=== PATIENT | female | born 1985 ===

== ENCOUNTER 2016-12-17 22:19 | Emergency (ER) | payer MEDICAID, OTHER ==
[2016-12-17 22:19] VITALS: BMI 38.4
[2016-12-17 22:33] VITALS: RESP 20; O2SAT 100
--- NOTE | 2016-12-17 23:39 | C.PDOC ---
History Of Present Illness Pt presents to ER with c/o of pain to right forearm S/P injury with a bedframe 1 week ago. Pt was helping carry a bedframe upstairs when it fell and hit her right arm. Pt applied ICE but pain continues, no OTC meds taken for pain. Pt denies weakness or numbness Time Seen by Provider: 12/17/16 22:42 Chief Complaint (Nursing): Upper Extremity Problem/Injury History Per: Patient History/Exam Limitations: no limitations Current Symptoms Are (Timing): Still Present Quality: Aching Severity: Mild Exacerbating Factor(s): Movement Past Medical History Vital Signs: Last Vital Signs Temp 98.4 F 12/17/16 22:28 Pulse 56 L 12/17/16 22:28 Resp 20 12/17/16 22:28 BP 104/70 12/17/16 22:28 Pulse Ox 100 12/17/16 23:39 - Medical History PMH: No Chronic Diseases - [facility] Procedures MONITORING NOS (08/29/14) LOW CERVICAL (08/29/14) Family History: States: Unknown Family Hx - Social History Hx Tobacco Use: Yes Hx Alcohol Use: No Hx Substance Use: No - Immunization History Hx Tetanus Toxoid Vaccination: No Hx Influenza Vaccination: No Hx Pneumococcal Vaccination: No Review Of Systems Musculoskeletal: Positive for: Arm Pain (right forearm) Neurological: Negative for: Weakness, Numbness Physical Exam - Physical Exam Appears: Well, No Acute Distress Skin: Normal Color, No Ecchymosis, No Other (erythema) Head: Atraumatic Eye(s): bilateral: Normal Inspection, PERRL Extremity: Normal ROM, Tenderness (minimal on palpation of right forearm- dorsal aspect), Capillary Refill (< 2sec), No Deformity, No Swelling, No Other ( hematoma) Extremity: Bilateral: Normal Color And Temperature Pulses: Left Radial: Normal, Right Radial: Normal Neurological/Psych: Oriented x3, Normal Motor, Normal Sensation Gait: Steady ED Course And Treatment O2 Sat by Pulse Oximetry: 100 - Other Rad Forearm XR X-Ray: Interpreted by Me, Viewed By Me Interpretation: No fracture or dislocation Progress Note: Motrin PO ordered. Pt advised to take PO motrin, arm elevation and ICE. Pt to follow up in clinic or PMD Reevaluation Time: 23:58 Reassessment Condition: Improved Disposition Counseled Patient/Family Regarding: Diagnosis, Need For Followup - Disposition Disposition: HOME/ ROUTINE Disposition Time: 23:58 Condition: STABLE Additional Instructions: Elevate arm - may use a sling Take motrin PO Apply ICE Please follow up with PMD return to ER if worse Prescriptions: Ibuprofen [Motrin] 600 mg PO Q6H #30 tab Instructions: Contusion in Adults (ED) - Clinical Impression Clinical Impression: Contusion of forearm, right
[2016-12-18 00:21] VITALS: BP 112/70; PULSE 66; TEMP 97.6
--- NOTE | 2016-12-18 12:22 | RAD ---
PROCEDURE: Radiographs of the Right Forearm HISTORY: pain COMPARISON: None available. TECHNIQUE: Frontal and lateral views obtained. FINDINGS: BONES: No fracture or destructive lesion. JOINT SPACES: Unremarkable. OTHER FINDINGS: Left wrist piercings appears radiopaque markers in the distal forearm adjacent to the radius. IMPRESSION: No acute findings related to/accounting for the clinical presentation. Concordant results with the preliminary interpretation rendered by the emergency department physician procedure.
== END 2016-12-18 00:21 | disposition home or self-care (01) ==
LOC: C.ER 22:19
DX: S50.11XA Contusion of right forearm, initial encounter (principal); W22.8XXA Striking against or struck by other objects, initial encounter

== ENCOUNTER 2017-04-24 09:09 | Emergency (ER) | payer OTHER ==
[2017-04-24 09:09] VITALS: BMI 38.4
[2017-04-24 09:19] VITALS: BP 110/77; PULSE 56; RESP 20; TEMP 98.1; O2SAT 99
--- NOTE | 2017-04-24 09:30 | C.PDOC ---
History Of Present Illness 31 y/o female presents to the ED for evaluation of worsening right lower molar pain which began several weeks ago. Patient states she has had a fracture of the tooth "for some time" but has not been able to find a dentist who is covered under her insurance. Patient denies fever, chills, discharge, or trauma to face. Time Seen by Provider: 04/24/17 09:19 Chief Complaint (Nursing): Dental Pain History Per: Patient History/Exam Limitations: no limitations Onset/Duration Of Symptoms: Other (several weeks ) Current Symptoms Are (Timing): Still Present Severity: Moderate Quality: Positive for: "Pain" Additional History Per: Patient Past Medical History Reviewed: Historical Data, Nursing Documentation, Vital Signs Vital Signs: Last Vital Signs Temp 98.1 F 04/24/17 09:17 Pulse 56 L 04/24/17 09:17 Resp 20 04/24/17 09:17 BP 110/77 04/24/17 09:17 Pulse Ox 99 04/24/17 10:50 - Medical History PMH: No Chronic Diseases Surgical History: No Surg Hx - [facility] Procedures MONITORING NOS (08/29/14) LOW CERVICAL (08/29/14) Family History: States: No Known Family Hx - Social History Hx Tobacco Use: Yes Hx Alcohol Use: No Hx Substance Use: No - Immunization History Hx Tetanus Toxoid Vaccination: No Hx Influenza Vaccination: No Hx Pneumococcal Vaccination: No Review Of Systems Except As Marked, All Systems Reviewed And Found Negative. Constitutional: Negative for: Fever, Chills ENT: Positive for: Mouth Pain (right lower molar pain). Negative for: Throat Pain Respiratory: Negative for: Cough, Shortness of Breath Skin: Negative for: Rash Physical Exam - Physical Exam Appears: Well, Non-toxic, In Acute Distress (in moderate pain) Skin: Normal Color, Warm, Dry, No Rash Head: Atraumatic, Normacephalic Eye(s): bilateral: Normal Inspection Oral Mucosa: Moist Teeth: Tender To Palpation (anterior aspect of tooth #32 (fractured)) Gingiva: Erythema (mild gingival erythema around tooth #32), No Swelling, No Abscess Throat: No Erythema, No Exudate, No Drooling Neck: Supple Cardiovascular: Rhythm Regular Respiratory: Normal Breath Sounds, No Rales, No Rhonchi, No Wheezing Extremity: Normal ROM Neurological/Psych: Oriented x3 Gait: Steady ED Course And Treatment O2 Sat by Pulse Oximetry: 99 (on RA) Pulse Ox Interpretation: Normal Progress Note: Patient given Penicillin PO and Vicodin PO in ED. Rxs given, and patient instructed to follow up with dentist within 1 week. Infomation for [facility] given to patient. She understands she should return to ED if symptoms worsen. Reevaluation Time: 09:44 Reassessment Condition: Improved Medical Decision Making Medical Decision Making: ROES MANAGER INTERNAL AWARE REVIEWED: Filled ID Written Drug QTY Days Prescriber Rx # Pharmacy* Refills MME/D Pymt Type MANAGER INTERNAL 01/03/2017 1 01/03/2017 OXYCODONE-ACETAMINOPHEN 5-325 20.0 2 SH PAR [id number] SHOP ([id number]) 0 75.0 Comm Ins [place] Disposition Counseled Patient/Family Regarding: Diagnosis, Need For Followup, Rx Given - Disposition Referrals: [facility] [Outside] Disposition: HOME/ ROUTINE Disposition Time: 09:44 Condition: STABLE Additional Instructions: FOLLOW UP WITH DENTIST WITHIN 1 WEEK [facility] - [phone]. USE MEDICATIONS DIRECTED RETURN TO ER IF SYMPTOMS WORSEN Prescriptions: Clindamycin [Cleocin] 300 mg PO TID #21 cap Hydrocodone/Acetaminophen [Hydrocodon-Acetaminophen 5-325] 1 each PO Q6 PRN #15 tablet PRN Reason: Pain, Moderate (4-7) Instructions: Toothache (ED) Forms: [facility] (Venezuelan) Print Language: EAST TIMORESE - Clinical Impression Clinical Impression: Dental caries, Pain, dental - Scribe Statement The provider has reviewed the documentation as recorded by the Scribe (Hayley Garcia) Provider Attestation: All medical record entries made by the Scribe were at my direction and personally dictated by me. I have reviewed the chart and agree that the record accurately reflects my personal performance of the history, physical exam, medical decision making, and the department course for this patient. I have also personally directed, reviewed, and agree with the discharge instructions and disposition.
[2017-04-24] MEDS ORDERED: Hydrocodone/Acetaminophen 5 mg /300 mg Tab PO STA (09:34)
[2017-04-24] MEDS ORDERED: Hydrocodone/Acetaminophen 5 mg /300 mg Tab PO ONE (09:38)
== END 2017-04-24 09:45 | disposition home or self-care (01) ==
LOC: C.ER 09:09
DX: K02.9 Dental caries, unspecified (principal)

== ENCOUNTER 2017-04-25 22:20 | Emergency (ER) | payer OTHER ==
[2017-04-25 22:20] VITALS: BMI 38.4
[2017-04-25 22:26] VITALS: BP 118/85; PULSE 62; RESP 18; TEMP 97.9; O2SAT 99
--- NOTE | 2017-04-25 23:42 | C.PDOC ---
History Of Present Illness 31 y/o female presents to the ED for evaluation of persistent pain to her right lower mouth, subjective fever, nausea, and 1-2 episodes of vomiting. Patient states she was seen in [facility] the [facility] before and was given prescription for Clindamycin and Percocet for pain. Patient has not yet followed up with dental care as instructed. She denies headache, sore throat, cough. Time Seen by Provider: 04/25/17 22:47 Chief Complaint (Nursing): Fever History Per: Patient History/Exam Limitations: no limitations Onset/Duration Of Symptoms: Hrs Current Symptoms Are (Timing): Still Present Associated Symptoms: Fever, Nausea, Vomiting. denies: Sore Throat, Cough Ear Symptoms: Bilateral: None Additional History Per: Patient Past Medical History Reviewed: Historical Data, Nursing Documentation, Vital Signs Vital Signs: Last Vital Signs Temp 97.9 F 04/25/17 22:23 Pulse 62 04/25/17 22:23 Resp 18 04/25/17 22:23 BP 118/85 04/25/17 22:23 Pulse Ox 99 04/26/17 04:02 - Medical History PMH: No Chronic Diseases Surgical History: No Surg Hx - [facility] Procedures MONITORING NOS (08/29/14) LOW CERVICAL (08/29/14) Family History: States: Unknown Family Hx - Social History Hx Tobacco Use: Yes Hx Alcohol Use: No Hx Substance Use: No - Immunization History Hx Tetanus Toxoid Vaccination: No Hx Influenza Vaccination: No Hx Pneumococcal Vaccination: No Review Of Systems Constitutional: Positive for: Fever (subjective ) ENT: Positive for: Mouth Pain (right lower mouth ). Negative for: Throat Pain Respiratory: Negative for: Cough Gastrointestinal: Positive for: Nausea, Vomiting Neurological: Negative for: Headache Physical Exam - Physical Exam Appears: Non-toxic, No Acute Distress Skin: Normal Color, Warm, Dry Head: Atraumatic, Normacephalic Eye(s): bilateral: Normal Inspection Oral Mucosa: Moist Teeth: Other (+cracked tooth in right lower jaw ) Neck: Normal ROM, Supple Gastrointestinal/Abdominal: Soft, No Tenderness, No Guarding, No Rebound Extremity: Normal ROM Neurological/Psych: Oriented x3, Normal Speech, Normal Cognition ED Course And Treatment O2 Sat by Pulse Oximetry: 99 Medical Decision Making Medical Decision Making: Impression: 31 y/o female with right lower mouth pain, subjective fever, nausea , and vomiting Plan : * Motrin * reassess and disposition Progress: Patient received Motrin PO. On reassessment, patient is resting comfortably, showing no signs of distress, remains afebrile, and reports an improvement in her pain. Patient is stable for discharge. Patient may be experiencing nausea and vomiting from the Percocet and/or antibiotic medication. Antibiotic was changed. Patient received Rx for Motrin and Zofran. Patient is stable for discharge and is advised to follow up with her dental care within 1-2 days for further evaluation. Disposition Counseled Patient/Family Regarding: Diagnosis, Need For Followup, Rx Given - Disposition Disposition: HOME/ ROUTINE Disposition Time: 23:42 Condition: STABLE Additional Instructions: Follow up with a dentist as soon as possible. Take ibuprofen for pain, Stop taking clindamycin, and take penicillin instead. Take zofran for nausea if needed. Only take narcotic pain medication for severe pain. Return to ER for any worsening symptoms. Prescriptions: Amoxicillin [Amoxil 500 mg Cap] 500 mg PO TID #21 cap Ibuprofen [Motrin] 600 mg PO TID #30 tab Ondansetron ODT [Zofran ODT] 4 mg PO TID #12 odt Instructions: Dental Caries (ED) Forms: [facility] (Chinese), General Discharge Instructions - Clinical Impression Clinical Impression: Pain, dental, Dental caries - PA / SINGLE RESOURCE BOSS / Resident Statement MD/DO has reviewed & agrees with the documentation as recorded. - Scribe Statement The provider has reviewed the documentation as recorded by the Scribe (Hayley Garcia) All medical record entries made by the Scribe were at my direction and personally dictated by me. I have reviewed the chart and agree that the record accurately reflects my personal performance of the history, physical exam, medical decision making, and the department course for this patient. I have also personally directed, reviewed, and agree with the discharge instructions and disposition.
== END 2017-04-26 00:04 | disposition home or self-care (01) ==
LOC: C.ER 22:20
DX: K02.9 Dental caries, unspecified (principal); K08.89 Other specified disorders of teeth and supporting structures

== ENCOUNTER 2017-06-12 05:31 | Emergency (ER) | payer OTHER ==
[2017-06-12 05:32] VITALS: BMI 38.4
[2017-06-12] MEDS ORDERED: Lidocaine 1% Inj (20ml) INFIL ONE (06:02)
[2017-06-12] MEDS ORDERED: Lidocaine 1% Inj (20ml) ONE (06:04)
[2017-06-12] MEDS ORDERED: Bacitracin Ointment 30 GM TUBE TOP STA (06:31)
[2017-06-12] MEDS ORDERED: Bacitracin 500 Units/gm Oint Foilpak UD ONE (06:34)
--- NOTE | 2017-06-12 06:57 | C.PDOC ---
History Of Present Illness 31 year old female presents to the ER for a complaint of foreign bodies under the right wrist. Denies weakness or numbness. Time Seen by Provider: 06/12/17 05:49 Chief Complaint (Nursing): Abnormal Skin Integrity History Per: Patient History/Exam Limitations: no limitations Onset/Duration Of Symptoms: Days Current Symptoms Are (Timing): Still Present Location Of Injury: Right: Wrist Quality Of Symptoms: Other (Foreign body) Recent travel outside of the [place]: No Past Medical History Reviewed: Historical Data, Nursing Documentation, Vital Signs Vital Signs: Last Vital Signs Temp 98.2 F 06/12/17 07:06 Pulse 81 06/12/17 07:06 Resp 18 06/12/17 07:06 BP 111/68 06/12/17 07:06 Pulse Ox 95 06/12/17 07:09 - Medical History PMH: No Chronic Diseases Surgical History: No Surg Hx - [facility] Procedures MONITORING NOS (08/29/14) LOW CERVICAL (08/29/14) Family History: States: Unknown Family Hx - Social History Hx Tobacco Use: Yes Hx Alcohol Use: No Hx Substance Use: No - Immunization History Hx Tetanus Toxoid Vaccination: Yes Hx Influenza Vaccination: No Hx Pneumococcal Vaccination: No Review Of Systems Skin: Positive for: Other (Foreign body) Neurological: Negative for: Weakness, Numbness Physical Exam - Physical Exam Appears: Non-toxic, No Acute Distress Skin: Warm, Dry Head: Atraumatic, Normacephalic Extremity: No Deformity, No Swelling, Other (2 punctate areas with roughened skin to right wrist with areas of discoloration. No erythema, warmth, or swelling.) Pulses: Left Radial: Normal, Right Radial: Normal Neurological/Psych: Oriented x3, Normal Speech, Normal Cognition, Normal Motor, Normal Sensation ED Course And Treatment O2 Sat by Pulse Oximetry: 95 (room air) Pulse Ox Interpretation: Normal Progress Note: Patient is resting comfortably, and is in no acute distress. Patient was instructed to follow up with PMD in 1-2 days for further evaluation. Laceration - Laceration Repair Right wrist medial Wound Length (In cm): 0.5 Description Of Wound: Linear Wound Cleansed With: Betadine, Sterile Saline Anesthesia: Lidocaine 1% Wound Examination: Irrigated With Saline, Foreign Material Removed Manually Wound Closure: Suture (x2) Suture Technique And Material Used: Nylon (4-0) Right wrist lateral Wound Length (In cm): 0.5 Description Of Wound: Linear Anesthesia: Lidocaine 1% Wound Examination: Irrigated With Saline, Foreign Material Removed Manually Wound Closure: Suture (x2) Suture Technique And Material Used: Nylon (4-0) Procedure: Blank - Time Out Time Out: Site verified - Consent obtained: Consent obtained: Verbal - Performed by: Performed by:: Mid-level provider - Topical: Local/Regional Anesthetic:: Lidocaine 1% - Location Location: Right, Wrist - Description Discription of Procedure: 06/12/17 (small incision made at each site using a 12 inch blade and mosquito forceps used to remove 2 embedded foreign bodies removed from each incision.) - Result Result: Successful - Post-Procedure Post-procedure:: Other (No complications.) - Patient Tolerated Procedure Patient Tolerated Procedure:: Well Disposition Counseled Patient/Family Regarding: Diagnosis, Need For Followup, Rx Given - Disposition Disposition: HOME/ ROUTINE Disposition Time: 07:06 Condition: STABLE Additional Instructions: Apply bacitracin oint Suture removal in 8 days Return to ER if worse Prescriptions: Cephalexin [cephalexin] 500 mg PO Q6 #28 cap Instructions: Soft Tissue Foreign Body (ED) Forms: [facility] (Tajik) - Clinical Impression Clinical Impression: Foreign body in soft tissue, Laceration - Scribe Statement The provider has reviewed the documentation as recorded by the Scribjorje Benton All medical record entries made by the Scribe were at my direction and personally dictated by me. I have reviewed the chart and agree that the record accurately reflects my personal performance of the history, physical exam, medical decision making, and the department course for this patient. I have also personally directed, reviewed, and agree with the discharge instructions and disposition.
[2017-06-12] MEDS ORDERED: Tetanus/Diphtheria Toxoids 0.5 ml Syringe IM ONE (07:00)
[2017-06-12 07:06] VITALS: BP 111/68; PULSE 81; RESP 18; TEMP 98.2
[2017-06-12 07:09] VITALS: O2SAT 95
== END 2017-06-12 07:12 | disposition home or self-care (01) ==
LOC: C.ER 05:31
DX: S60.851A Superficial foreign body of right wrist, initial encounter (principal); X58.XXXA Exposure to other specified factors, initial encounter

== ENCOUNTER 2017-08-31 01:58 | Emergency (ER) | payer OTHER ==
[2017-08-31 02:04] VITALS: BMI 26.6
[2017-08-31 02:16] VITALS: TEMP 98
[2017-08-31 02:17] LABS: SQUAMOUS EPITHIAL 2 /hpf (0-5); URINE BILIRUBIN NEGATIVE (NEGATIVE); URINE BLOOD NEGATIVE (NEGATIVE); URINE CLARITY Clear (Clear); URINE COLOR Yellow (YELLOW); URINE GLUCOSE (UA) NORMAL (Normal); URINE LEUKOCYTE ESTERASE NEG Leu/uL (Negative); URINE NITRATE NEGATIVE (NEGATIVE); URINE PROTEIN NEGATIVE (NEGATIVE)
[2017-08-31 02:18] LABS: HCG,QUALITATIVE URINE POSITIVE (NEGATIVE)
--- NOTE | 2017-08-31 02:39 | C.PDOC ---
History Of Present Illness 31 year old female , G 4 P 3, presents to the ED c/o abdominal pain, back pain for the past few days. Patient's LMP was on 07/03/17, patient also noted some white vaginal discharge. Patient denies dysuria, hematuria, vaginal bleeding, nausea, vomit, diarrhea. Chief Complaint (Nursing): Back Pain History Per: Patient History/Exam Limitations: no limitations Onset/Duration Of Symptoms: Days Current Symptoms Are (Timing): Still Present Quality Of Discomfort: "Pain" Previous Symptoms: Back Pain Associated Symptoms: None Recent travel outside of the [place]: No Additional History Per: Patient Past Medical History Reviewed: Historical Data, Nursing Documentation, Vital Signs Vital Signs: Last Vital Signs Temp 98 F 08/31/17 02:10 Pulse 88 08/31/17 02:10 Resp 20 08/31/17 02:10 BP 126/88 08/31/17 02:10 Pulse Ox 98 08/31/17 04:43 - Medical History PMH: No Chronic Diseases Denies: Chronic Kidney Disease Surgical History: No Surg Hx - [facility] Procedures MONITORING NOS (08/29/14) LOW CERVICAL (08/29/14) Family History: States: Unknown Family Hx - Social History Hx Tobacco Use: Yes Hx Alcohol Use: No Hx Substance Use: No - Immunization History Hx Tetanus Toxoid Vaccination: Yes Hx Influenza Vaccination: No Hx Pneumococcal Vaccination: No Review Of Systems Constitutional: Negative for: Fever, Chills Cardiovascular: Negative for: Chest Pain, Palpitations Respiratory: Negative for: Cough, Shortness of Breath Gastrointestinal: Positive for: Abdominal Pain. Negative for: Nausea, Vomiting Genitourinary: Positive for: Vaginal Discharge. Negative for: Dysuria, Hematuria, Vaginal Bleeding Musculoskeletal: Positive for: Back Pain Skin: Negative for: Rash Neurological: Negative for: Weakness, Numbness Physical Exam - Physical Exam Appears: Non-toxic, No Acute Distress Skin: Normal Color, Warm, Dry Head: Atraumatic, Normacephalic Eye(s): bilateral: Normal Inspection Nose: No Discharge, No Deformity Oral Mucosa: Moist Neck: Normal ROM, Supple Chest: Symmetrical Cardiovascular: Rhythm Regular, No Murmur Respiratory: Normal Breath Sounds, No Rales, No Rhonchi, No Wheezing Gastrointestinal/Abdominal: Soft, Tenderness (suprapubic), No Guarding, No Rebound Pelvic: Normal External Exam, No Vaginal Bleeding, Vaginal Discharge (whitish mucoid), No Cervical Motion Tenderness, No Adnexal Tenderness Extremity: Normal ROM, No Pedal Edema, No Calf Tenderness, No Deformity, No Swelling Neurological/Psych: Oriented x3, Normal Speech, Normal Cognition Gait: Steady ED Course And Treatment - Laboratory Results Result Diagrams: 08/31/17 02:54 08/31/17 02:54 O2 Sat by Pulse Oximetry: 98 (On RA) Pulse Ox Interpretation: Normal - CT Scan/US US Pelvis Other Rad Studies (CT/US): Read By Radiologist, Radiology Report Reviewed CT/US Interpretation: EXAM: US First Trimester, Transabdominal. CLINICAL HISTORY: 31 years old, female; Pain; complicated by abdominal or pelvic pain; Lower; First. trimester; Gestational age or lmp: -17; ; Additional info: Lower abd and back pain. TECHNIQUE: Real- time transabdominal obstetrical ultrasound of the maternal pelvis and a first trimester. with image documentation. COMPARISON: No relevant prior studies available. FINDINGS: Gestation: Single live intrauterine gestation. heart rate of 117 beats per minute. Lindrith-rump. length of 0.3 cm, correlating with gestational age of 5 weeks 6 days. Uterus/cervix: 1.5 x 0.5 x 1.6 cm collection along gestational sac. No cervical dilatation or. effacement. Ovaries: RIGHT ovary: Probable 1.2 x 1.2 x 2.1 cm corpus luteal cyst. LEFT ovary: Normal. No. adnexal masses. Free fluid: No significant free fluid. IMPRESSION: 1. Single live intrauterine gestation. 2. Subchorionic hemorrhage. 3. Incidental/non-acute findings are described above. EXAM: US , Transvaginal. CLINICAL HISTORY: 31 years old, female; Pain; complicated by abdominal or pelvic pain; Lower; First. trimester; Gestational age or lmp: 07-03-17; ; Additional info: Lower abd and back pain. TECHNIQUE: Real-time transvaginal obstetrical ultrasound of the maternal pelvis and a first trimester . with image documentation. Transvaginal imaging was used for better evaluation of the fetus and. adnexa. COMPARISON: No relevant prior studies available. FINDINGS: Gestation: Single live intrauterine gestation. heart rate of 117 beats per minute. Lindrith- rump. length of 0.3 cm, correlating with gestational age of 5 weeks 6 days. Uterus/cervix: 1.5 x 0.5 x 1.6 cm collection along gestational sac. No cervical dilatation or. effacement. Ovaries: RIGHT ovary: Probable 1.2 x 1.2 x 2.1 cm corpus luteal cyst. LEFT ovary: Normal. No. adnexal masses. Free fluid: No significant free fluid. IMPRESSION: 1. Single live intrauterine gestation. 2. Subchorionic hemorrhage. 3. Incidental/non-acute findings are described above. Medical Decision Making Medical Decision Making: Impression : female with abdominal, back pain and white vaginal discharge Plan: * Labs * Chlamydia test * UA * Pelvis US Disposition Counseled Patient/Family Regarding: Diagnosis - Disposition Referrals: [facility] [Outside] Disposition: HOME/ ROUTINE Disposition Time: 04:41 Condition: STABLE Prescriptions: Multivit/Folic Acid/I [ Plus] 1 tab PO DAILY #30 tab Instructions: (ED) Forms: [facility] (Armenian) - POA Present On Arrival: None - Clinical Impression Clinical Impression: Low back strain, , Leukorrhea, not specified as infective - Scribe Statement The provider has reviewed the documentation as recorded by the Scribe Pablo Gardner All medical record entries made by the Scribe were at my direction and personally dictated by me. I have reviewed the chart and agree that the record accurately reflects my personal performance of the history, physical exam, medical decision making, and the department course for this patient. I have also personally directed, reviewed, and agree with the discharge instructions and disposition.
[2017-08-31 02:57] LABS: BASO # 0.1 K/uL (0.0-0.2); BASO % 0.6 % (0.0-2.0); EOS # 0.1 K/uL (0.0-0.7); HEMOGLOBIN 13.2 g/dL (11.0-16.0); LYMPH # 2.6 K/uL (1.0-4.3); LYMPH % 29.1 % (20.0-40.0); MEAN CELL VOLUME 84.8 fL (81.0-99.0); MEAN CORPUSCULAR HEMOGLOBIN 29.7 pg (27.0-31.0); MEAN PLATELET VOLUME 8.1 fL (7.2-11.7); MONO # 0.6 K/uL (0.0-0.8); MONO % 7.1 % (0.0-10.0); NEUT # 5.5 K/uL (1.8-7.0); NEUT % 62.2 % (50.0-75.0); RBC 4.45 Mil/uL (3.80-5.20); RED CELL DISTRIBUTION WIDTH 13.7 % (11.5-14.5); WHITE BLOOD COUNT 8.8 K/uL (4.8-10.8)
[2017-08-31 03:11] LABS: ALB/GLOB RATIO 1.1 (1.0-2.1); ALBUMIN 4.3 g/dL (3.5-5.0); ALT/SGPT 24 U/L (9-52); AST/SGOT 28 U/L (14-36); BLOOD UREA NITROGEN 12 mg/dL (7-17); GFR AFRICAN-AMERICAN > 60; GFR NON-AFRICAN AMERICAN > 60
--- NOTE | 2017-08-31 04:37 | US ---
EXAM: US First Trimester, Transabdominal CLINICAL HISTORY: 31 years old, female; Pain; complicated by abdominal or pelvic pain; Lower; First trimester; Gestational age or lmp: 11-20-17; ; Additional info: Lower abd and back pain TECHNIQUE: Real-time transabdominal obstetrical ultrasound of the maternal pelvis and a first trimester with image documentation. COMPARISON: No relevant prior studies available. FINDINGS: Gestation: Single live intrauterine gestation. heart rate of 117 beats per minute. Leon-rump length of 0.3 cm, correlating with gestational age of 5 weeks 6 days. Uterus/cervix: 1.5 x 0.5 x 1.6 cm collection along gestational sac. No cervical dilatation or effacement. Ovaries: RIGHT ovary: Probable 1.2 x 1.2 x 2.1 cm corpus luteal cyst. LEFT ovary: Normal. No adnexal masses. Free fluid: No significant free fluid. IMPRESSION: 1. Single live intrauterine gestation. 2. Subchorionic hemorrhage. 3. Incidental/non-acute findings are described above. EXAM: US , Transvaginal CLINICAL HISTORY: 31 years old, female; Pain; complicated by abdominal or pelvic pain; Lower; First trimester; Gestational age or lmp: 11-20-17; ; Additional info: Lower abd and back pain TECHNIQUE: Real-time transvaginal obstetrical ultrasound of the maternal pelvis and a first trimester with image documentation. Transvaginal imaging was used for better evaluation of the fetus and adnexa. COMPARISON: No relevant prior studies available. FINDINGS: Gestation: Single live intrauterine gestation. heart rate of 117 beats per minute. Leon-rump length of 0.3 cm, correlating with gestational age of 5 weeks 6 days. Uterus/cervix: 1.5 x 0.5 x 1.6 cm collection along gestational sac. No cervical dilatation or effacement. Ovaries: RIGHT ovary: Probable 1.2 x 1.2 x 2.1 cm corpus luteal cyst. LEFT ovary: Normal. No adnexal masses. Free fluid: No significant free fluid.
[2017-08-31 04:57] VITALS: BP 120/80; PULSE 80; RESP 14; O2SAT 99
== END 2017-08-31 04:57 | disposition home or self-care (01) ==
LOC: C.ER 01:58
DX: O26.91 Pregnancy related conditions, unspecified, first trimester (principal); Z3A.01 Less than 8 weeks gestation of pregnancy; N89.8 Other specified noninflammatory disorders of vagina; S39.012A Strain of muscle, fascia and tendon of lower back, initial encounter; X58.XXXA Exposure to other specified factors, initial encounter; Y92.9 Unspecified place or not applicable

== ENCOUNTER 2018-07-13 11:04 | Emergency (ER) | payer OTHER ==
[2018-07-13 11:12] VITALS: BMI 29.0
[2018-07-13 11:14] VITALS: BP 102/70; PULSE 81; RESP 18; TEMP 97.8; O2SAT 97
--- NOTE | 2018-07-13 11:40 | C.PDOC ---
History Of Present Illness 32 year old female presents to the ED for evaluation of nasal congestion and cough which began around 2 days ago. She has been taking NyQuil without significant relief. Patient presents to the ED today because her PMD's office was closed. She denies fever, chills. Time Seen by Provider: 07/13/18 11:20 Chief Complaint (Nursing): Flu-like Symptoms History Per: Patient History/Exam Limitations: no limitations Onset/Duration Of Symptoms: Days (2 ) Current Symptoms Are (Timing): Still Present Associated Symptoms: Cough, Nasal Congestion. denies: Fever, Chills Additional History Per: Patient Past Medical History Reviewed: Historical Data, Nursing Documentation, Vital Signs Vital Signs: Last Vital Signs Temp 97.8 F 07/13/18 11:12 Pulse 81 07/13/18 11:12 Resp 18 07/13/18 11:12 BP 102/70 07/13/18 11:12 Pulse Ox 97 07/13/18 11:12 - Medical History PMH: No Chronic Diseases Surgical History: No Surg Hx - [facility] Procedures MONITORING NOS (08/29/14) LOW CERVICAL (08/29/14) Family History: States: Unknown Family Hx - Social History Hx Tobacco Use: Yes Hx Alcohol Use: Yes Hx Substance Use: No - Immunization History Hx Tetanus Toxoid Vaccination: Yes Hx Influenza Vaccination: No Hx Pneumococcal Vaccination: No Review Of Systems Constitutional: Negative for: Fever, Chills ENT: Positive for: Nose Congestion Respiratory: Positive for: Cough Physical Exam - Physical Exam Appears: Non-toxic, No Acute Distress Skin: Normal Color, Warm, Dry Head: Atraumatic, Normacephalic Eye(s): bilateral: Normal Inspection Ear(s): Bilateral: Normal Nose: Other (nasal congestion ) Oral Mucosa: Moist Throat: Normal, No Erythema, No Exudate Neck: Supple Chest: Symmetrical, No Deformity, No Tenderness Cardiovascular: Rhythm Regular, No Murmur Respiratory: Normal Breath Sounds, No Rales, No Rhonchi, No Wheezing Neurological/Psych: Normal Speech, Normal Cognition ED Course And Treatment O2 Sat by Pulse Oximetry: 97 (on RA) Pulse Ox Interpretation: Normal Medical Decision Making Medical Decision Making: Progress: On reassessment, patient is resting comfortably, remains afebrile and is showing no signs of distress. Patient is stable for discharge with Rx. She is advised to follow up with her PMD within 1-2 days for further evaluation. Disposition Counseled Patient/Family Regarding: Diagnosis, Need For Followup, Rx Given - Disposition Referrals: Shaik Aguilar MD [Staff Provider] - Disposition: HOME/ ROUTINE Disposition Time: 11:45 Condition: STABLE Additional Instructions: You have viral upper respiratory infection. Take Tylenol or Motrin alternating every 4-6 hours for Fever 100.4F or higher. Rest and drink plenty of fluids. May use cool mist humidifier or vaporizer in room. Try taking over the counter antihistamine (Claritin, Rebecca, Zyrtec), Decongestant or Cough medicine (Mucinex) as needed every 6-8 hours. Follow up with your primary medical doctor or clinic in 1 week for further evaluation. Prescriptions: Brompheniram/Phenylephrine/Dm [Gnp Cold-Cough Elixir] 5 ml PO Q8 10 Days #300 ml Fluticasone Propionate [Flonase] 1 spray NS DAILY #1 bottle Instructions: Viral Upper Respiratory Infection, Adult (DC) Forms: [employer] (Pakistani), Work Excuse - POA Present On Arrival: None - Clinical Impression Clinical Impression: Upper respiratory infection - PA / GETTER FILLER / Resident Statement MD/DO has reviewed & agrees with the documentation as recorded. - Scribe Statement The provider has reviewed the documentation as recorded by the Scribe (Hayley Garcia) All medical record entries made by the Scribe were at my direction and personally dictated by me. I have reviewed the chart and agree that the record accurately reflects my personal performance of the history, physical exam, medical decision making, and the department course for this patient. I have also personally directed, reviewed, and agree with the discharge instructions and disposition.
== END 2018-07-13 11:47 | disposition home or self-care (01) ==
LOC: C.ER 11:04
DX: J06.9 Acute upper respiratory infection, unspecified (principal); Z87.891 Personal history of nicotine dependence

== ENCOUNTER 2018-10-13 13:01 | Emergency (ER) | payer OTHER ==
[2018-10-13 13:02] VITALS: BMI 29.0
[2018-10-13 13:20] VITALS: BP 104/69; PULSE 90; RESP 18; TEMP 97.8; O2SAT 98
--- NOTE | 2018-10-13 13:30 | C.PDOC ---
History Of Present Illness 33 y/o female pt with hx of eczema presents to the ER c/o itchy rash on right outer thigh. Pt reports she went to her laboratory secretary and was given a cream to use with no relief. Pt has no other associated sx or complaints at this time. Time Seen by Provider: 10/13/18 13:05 Chief Complaint (Nursing): Abnormal Skin Integrity History Per: Patient History/Exam Limitations: no limitations Onset/Duration Of Symptoms: Days Current Symptoms Are (Timing): Still Present Past Medical History Reviewed: Historical Data, Nursing Documentation, Vital Signs Vital Signs: Last Vital Signs Temp 97.8 F 10/13/18 13:07 Pulse 90 10/13/18 13:07 Resp 18 10/13/18 13:07 BP 104/69 10/13/18 13:07 Pulse Ox 98 10/13/18 13:07 - [facility] Procedures MONITORING NOS (08/29/14) LOW CERVICAL (08/29/14) Family History: States: Unknown Family Hx - Social History Hx Tobacco Use: Yes Hx Alcohol Use: Yes Hx Substance Use: No - Immunization History Hx Tetanus Toxoid Vaccination: Yes Hx Influenza Vaccination: No Hx Pneumococcal Vaccination: No Review Of Systems Constitutional: Negative for: Fever, Chills ENT: Negative for: Ear Pain Cardiovascular: Negative for: Chest Pain Respiratory: Negative for: Cough, Shortness of Breath Gastrointestinal: Negative for: Nausea, Vomiting, Abdominal Pain, Diarrhea Skin: Positive for: Rash (right outer thigh ) Physical Exam - Physical Exam Appears: Non-toxic, No Acute Distress Skin: Warm, Dry, Rash (4-5 cm dry appearing patch on right outer thigh; erythematous; non-vesicular ) Head: Normacephalic Eye(s): bilateral: Normal Inspection Oral Mucosa: Moist Tongue: Normal Appearing, No Swelling Lips: Normal Appearing, No Swelling Throat: Normal, No Erythema, No Exudate, No Drooling Cardiovascular: Rhythm Regular Respiratory: Normal Breath Sounds, No Rales, No Rhonchi, No Wheezing Neurological/Psych: Oriented x3, Normal Speech ED Course And Treatment O2 Sat by Pulse Oximetry: 98 (RA) Pulse Ox Interpretation: Normal Progress Note: Plans: -- claritin. -- Pt was given rx for claritin and d/c Disposition Counseled Patient/Family Regarding: Diagnosis, Need For Followup, Rx Given - Disposition Referrals: [facility] [Outside] Disposition: HOME/ ROUTINE Disposition Time: 13:40 Condition: STABLE Additional Instructions: FOLLOW UP WITH [facility] WITHIN 1 WEEK USE MEDICATIONS DIRECTED RETURN TO ER IF SYMPTOMS WORSEN Prescriptions: Hydrocortisone 2.5% 1 applic TOP BID PRN #1 oint PRN Reason: Rash Loratadine [Claritin] 10 mg PO DAILY PRN #30 tab PRN Reason: Itching / Pruritus Instructions: Eczema (Atopic Dermatitis) (DC) Forms: [email or web address] (Greek) Print Language: BAHRAINI - Clinical Impression Clinical Impression: Eczema - Scribe Statement The provider has reviewed the documentation as recorded by the Jareth Patiño Do Provider Attestation: All medical record entries made by the Marychuyibe were at my direction and personally dictated by me. I have reviewed the chart and agree that the record accurately reflects my personal performance of the history, physical exam, medical decision making, and the department course for this patient. I have also personally directed, reviewed, and agree with the discharge instructions and disposition.
== END 2018-10-13 13:44 | disposition home or self-care (01) ==
LOC: C.ER 13:01
DX: L30.9 Dermatitis, unspecified (principal)